=== PATIENT | female | born 2000 | race Caucasian/White ===

== ENCOUNTER 2018-12-25 14:19 | Emergency (ER) | payer SELFPAY ==
[~2018-12-25] VITALS: Ht 154.9 cm; Wt 44.5 kg
[2018-12-25 14:35] VITALS: Ht 154.9 cm; Wt 44.5 kg
[2018-12-25 15:21] LABS: BASOPHIL % 0.1 % (0-2); PLATELET COUNT 358 x10^3mcL (130-400)
[2018-12-25 15:29] LABS: RED CELL DISTRIBUTION WIDTH 15.4 % (11.5-14.5)
[2018-12-25 15:30] LABS: microscopic required? YES; urine erythrocyte NEGATIVE (NEGATIVE)
[2018-12-25 15:32] LABS: CALCIUM 8.5 mg/dL (8.5-10.1); CARBON DIOXIDE 26.4 mmol/L (21-32); CHLORIDE SERUM 103 mmol/L (98-107); CREATININE SERUM 0.6 mg/dL (0.6-1.0); GFR1 > 60 mL/min; GLUCOSE SERUM 96 mg/dL (74-106); POTASSIUM SERUM 3.5 mmol/L (3.5-5.1); SODIUM SERUM 138 mmol/L (136-145)
[2018-12-25 15:36] LABS: ALKALINE PHOSPHATASE 70 U/L (46-116); ALT/SGPT 21 U/L (14-59); AST/SGOT 15 U/L (15-37); BILIRUBIN TOTAL 0.7 mg/dL (0.20-1.00); TOTAL PROTEIN, SERUM 8.2 g/dL (6.4-8.2)
[2018-12-25 18:30] VITALS: BP 120/79
== END 2018-12-25 18:30 | disposition home or self-care (01) ==
LOC: ED 14:19
PROVIDERS: Specialist
DX: O20.0 Threatened abortion (principal); O23.41 Unspecified infection of urinary tract in pregnancy, first trimester; Z3A.01 Less than 8 weeks gestation of pregnancy
CPT/HCPCS: 36415

== ENCOUNTER 2019-05-06 12:43 | Emergency (ER) | payer BC ==
[~2019-05-06] VITALS: Ht 154.9 cm; Wt 43.5 kg
[2019-05-06 12:54] VITALS: Ht 154.9 cm; Wt 43.5 kg
[2019-05-06 15:30] VITALS: BP 134/72
[2019-05-07 06:05] LABS: RAPID PLASMA REAGIN Non Reactive (Non Reactive)
== END 2019-05-06 16:29 | disposition home or self-care (01) ==
LOC: ED 12:43
PROVIDERS: Emergency Medicine
DX: R10.2 Pelvic and perineal pain (principal); R30.0 Dysuria
CPT/HCPCS: 87491; 87591; J0696; J1885

== ENCOUNTER 2019-05-07 14:55 | Emergency (ER) | payer BC ==
[~2019-05-07] VITALS: Ht 154.9 cm; Wt 41.7 kg
[2019-05-07 14:57] VITALS: Ht 154.9 cm; Wt 41.7 kg
[2019-05-07 15:35] LABS: BASOPHIL % 0.3 % (0-2)
[2019-05-07 15:38] LABS: PLATELET COUNT 408 x10^3mcL (130-400); RED CELL DISTRIBUTION WIDTH 15.1 % (11.5-14.5)
[2019-05-07 15:43] LABS: CALCIUM 9.1 mg/dL (8.5-10.1); CARBON DIOXIDE 24.4 mmol/L (21-32); CHLORIDE SERUM 103 mmol/L (98-107); CREATININE SERUM 0.8 mg/dL (0.6-1.0); GFR1 > 60 mL/min; GLUCOSE SERUM 79 mg/dL (74-106); POTASSIUM SERUM 3.4 mmol/L (3.5-5.1); SODIUM SERUM 140 mmol/L (136-145)
[2019-05-07 15:47] LABS: ALBUMIN 4.5 g/dL (3.4-5.0); ALKALINE PHOSPHATASE 69 U/L (46-116); ALT/SGPT 21 U/L (14-59); AST/SGOT 17 U/L (15-37); BILIRUBIN TOTAL 0.74 mg/dL (0.20-1.00)
[2019-05-07 17:30] VITALS: BP 105/67
== END 2019-05-07 17:36 | disposition home or self-care (01) ==
LOC: ED 14:55
PROVIDERS: Emergency Medicine
DX: N39.0 Urinary tract infection, site not specified (principal)
CPT/HCPCS: J2405; J7030